=== PATIENT | female | born 1950 | race African-American/Black ===

== ENCOUNTER → 2018-07-14 | Outpatient (CLI) | payer OTHER, BC ==
[~2018-07-14] VITALS: Ht 165.1 cm; Wt 62.9 kg
[~2018-07-14] MED LIST: HYDROCHLOROTHIA25 M2 PO; KEFLEX500 M1 PO
--- NOTE | ~2018-07-14 | HC ---
[facility] [place] [address] CONSULTATION Name: AVERY GUTIERREZ Room #: REG ALMA Monge#: [id number] Admission: 07/14/18 Attend Phys: Johnnie Wesley Discharge: Date of : 48 Report #: [id number] THIS REPORT FOR: //name// CC: Johnnie Stevens DATE OF SERVICE: 07/14/2018 HISTORY OF PRESENT ILLNESS: A 68-year-old -[place] woman seen by me on multiple previous occasions in my office that has been closed now since 10/2016. The patient tells me she has not seen me for the last 4 years or thereabouts. She was seen for chronic right tibia osteomyelitis -- recurrent that has failed to 3 previous attempts to stop chronic suppression with Keflex. The patient is doing well. She had previous fracture of right tibia requiring surgery by Dr. Thomas. We attempted on 3 previous occasions to discontinue her antibiotics and she had a flareup of the osteomyelitis. Consequently, she had been kept on chronic Keflex 500 mg t.i.d. to once daily in order to suppress recurrence of osteomyelitis. PAST MEDICAL HISTORY: The patient has a history of fracture, right leg with infection with methicillin-sensitive Staphylococcus aureus -- recurrent osteomyelitis. She is status post tonsillectomy. History of hypertension. Question reaction to influenza vaccine in the past. MEDICATIONS: Include Keflex 500 mg p.o. daily to t.i.d., hydrochlorothiazide 25 mg daily for hypertension. SOCIAL HISTORY: She has many children and even great grandchildren. 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 REVIEW OF SYSTEMS: Noncontributory. PHYSICAL EXAMINATION: GENERAL: Well-developed woman, not toxic looking, no distress. VITAL SIGNS: Height 5 feet 5 inches, weight 138.6 pounds, BP 138/89, pulse 63, temperature 97.4, saturation 99% on room air. HEENMT: Within range. NECK: Supple, no thyromegaly. BREASTS: Deferred. LUNGS: Clear. HEART: S1, S2. No gallop or murmur. ABDOMEN: Soft, no masses or megaly. EXTREMITIES: No pretibial edema. Surgical scar of previous right knee surgery as well as well-healed sinus tract. ASSESSMENT: [facility] [address] [facility] [place] [address] CONSULTATION Name: MATTAVERY Room #: REG ALMA Saleem#: [id number] Admission: 07/14/18 Attend Phys: Johnnie Wesley Discharge: Date of : 48 Report #: [id number] 1. Chronic osteomyelitis, right tibia, on chronic Keflex supression. 2. Hypertension. PLAN: Recommend continue Keflex 500 mg t.i.d., #90, 12 refills. Continue hydrochlorothiazide 25 mg p.o. daily, #30, 12 refills. CBC, CMP, ESR, lipids. Recommend Pneumovax vaccine and mammogram as well as colonoscopy. The patient will follow my advice if she agrees with my recommendation. I would like to see her in a year's time again. <ELECTRONICALLY SIGNED> By: Johnnie Springer MD 07/15/18 0933 [id number] Johnnie Springer MD /nt
[2018-07-14 11:59] VITALS: BP 138/89
[2018-07-14 13:29] LABS: ABSOLUTE NEUTROPHILS 2.8 thou/uL (1.4-8.2); BASOPHILS 0.5 % (0.0-2.0); EOSINOPHILS 0.9 % (0.0-3.0); HEMOGLOBIN 12.9 gm/dL (12.0-15.0); LYMPHOCYTES 48.6 % (24.0-44.0); MCH 31.1 pg (26.0-34.0); MCHC 33.9 g/dL (28.0-37.0); MCV 91.8 fL (80.0-100.0); MONOCYTES 4.7 % (1.0-8.0); PLATELET COUNT 218 thou/uL (150-400); POLYS 45.3 % (36.0-66.0); RBC 4.14 mil/uL (4.20-5.00); RDW 14.8 % (10.5-14.5); WBC 6.1 thou/uL (4.0-11.0)
[2018-07-14 13:38] LABS: ANION GAP 10 mmol/L (7-16); BUN 13 mg/dL (7-18); CALCIUM 8.9 mg/dL (8.5-10.1); CHLORIDE 104 mmol/L (98-107); CHOLESTEROL 154 mg/dL (<200); CO2 27 mmol/L (21-32); CREATININE 0.9 mg/dL (0.6-1.0); GLUCOSE 96 mg/dL (74-106); HDL CHOLESTEROL 113 mg/dL (>40); LDL CHOLESTEROL 38.00001 mg/dL (<100); POTASSIUM 3.9 mmol/L (3.5-5.1); SGOT 20 U/L (15-37); SGPT 21 U/L (30-65); SODIUM 141 mmol/L (136-145); TC:HDL 1.4 Ratio (Not establshd); TOTAL BILIRUBIN 0.5 mg/dL (<0.1-1.0); TOTAL PROTEIN 7.5 g/dL (6.4-8.2); TRIGLYCERIDE < 15 mg/dL (<150); VLDL 3 mg/dL (<40)
== END ==
LOC: SEN 08:26
PROVIDERS: Nurse Practitioner Family
DX: M86.661 Other chronic osteomyelitis, right tibia and fibula (principal); I10 Essential (primary) hypertension